=== PATIENT | female | born 1960 | race Caucasian/White ===

== ENCOUNTER → 2018-07-04 06:57 | Outpatient (CLI) | payer OTHER, SELFPAY ==
[2018-07-04 08:31] LABS: Alanine Aminotransferase 41 IU/L (9-52); Albumin Globulin Ratio 1.5 (1.0-2.8); Alkaline Phosphatase 58 U/L (38-126); Aspartate Aminotransferase 30 IU/L (14-36); Bilirubin Total 0.7 mg/dL (0.2-1.3); Blood Urea Nitrogen 16 mg/dL (7-17); Calcium 9.6 mg/dL (8.4-10.2); Carbon Dioxide 28 mmol/L (22-32); Chloride 105 mmol/L (98-107); Cholesterol 175 mg/dL (140-199); Estimated Glomerular Filt Rate 56.9 mL/min (>60); Globulin 2.7 g/dL (1.7-4.1); Glucose 83 mg/dL (70-100); HDL Cholesterol 48 mg/dL (40-60); HEMOLYSIS 15 (0-50); LDL Cholesterol Calculated 100 mg/dL (<100); Potassium 4.3 mmol/L (3.4-5.1); Sodium 143 mmol/L (137-145); Total Protein 6.7 g/dL (6.3-8.2); Triglycerides 136 mg/dL (35-150)
== END ==
PROVIDERS: PCP Physician Assistant; Visit Provider Physician Assistant
DX: E78.2 Mixed hyperlipidemia (principal)
CPT/HCPCS: 36415; 80053; 80061

== ENCOUNTER → 2018-07-23 10:57 | Outpatient (CLI) | payer OTHER, SELFPAY ==
--- NOTE | 2018-07-23 11:05 | DI.MG.S_ITS ---
BILATERAL DIGITAL SCREENING MAMMOGRAM 3D/2D WITH CAD: 07/23/2018 CLINICAL: Routine screening. Comparison is made to exams dated: 08/02/2015 mammogram, 07/13/2015 mammogram, and 06/24/2013 mammogram - [facility]. There are scattered fibroglandular elements in both breasts. Current study was also evaluated with a Computer Aided Detection (CAD) system. There is 0.5 cm oval equal density focal asymmetry with a circumscribed margin in the right breast at 2 o'clock middle depth. No other significant masses, calcifications, or other findings are seen in either breast. IMPRESSION: INCOMPLETE: NEEDS ADDITIONAL IMAGING EVALUATION The 0.5 cm oval equal density focal asymmetry in the right breast is indeterminate. Mediolateral and spot compression views as well as additional views with possible ultrasound are recommended. This exam was interpreted at Station ID: [id number]. NOTE: For mammograms, a report in lay terms will be sent to the patient. Approximately 15% of breast malignancies will not be visualized mammographically. In the management of a palpable breast mass, a negative mammogram must not discourage biopsy of a clinically suspicious lesion. Electronically Signed By: John aguilera/joao:07/23/2018 11:36:12 letter sent: Additional Imaging Needed ACR BI-RADS Category 0: Incomplete 3340F
== END ==
PROVIDERS: PCP Physician Assistant; Visit Provider Physician Assistant
DX: Z12.31 Encounter for screening mammogram for malignant neoplasm of breast (principal)
CPT/HCPCS: 77063; 77067

== ENCOUNTER → 2018-08-29 08:53 | Outpatient (CLI) | payer OTHER, SELFPAY ==
--- NOTE | 2018-08-29 08:54 | DI.US.S_ITS ---
PROCEDURE: US BREAST RT LIMITED COMPARISON: None. INDICATIONS: ABNORMAL RIGHT MAMMOGRAM FINDINGS: IMPRESSION: Dictated by: Mercy Altamirano M.D. on 08/29/2018 at 10:59 Approved by: Mercy Altamirano M.D. on 08/29/2018 at 11:02
--- NOTE | 2018-08-29 08:54 | DI.MG.S_ITS ---
UNILATERAL RIGHT DIGITAL DIAGNOSTIC MAMMOGRAM 3D/2D WITH ADDITIONAL VIEWS: 08/29/2018 CLINICAL: Additional evaluation requested from prior study. Comparison is made to exams dated: 07/23/2018 mammogram, 08/02/2015 mammogram, 07/13/2015 mammogram, and 06/24/2013 mammogram - [facility]. There are scattered fibroglandular elements in right breast. There is 0.5 cm oval equal density focal asymmetry with a circumscribed margin in the right breast at 2 o'clock middle depth. This is seen in additional views. No other significant masses or calcifications are seen in the breast. IMPRESSION: INCOMPLETE: NEEDS ADDITIONAL IMAGING EVALUATION The 0.5 cm oval equal density focal asymmetry in the right breast is indeterminate. A targeted ultrasound of the right breast is recommended and will be performed immediately following this exam. This exam was interpreted at Station ID: [id number]. NOTE: For mammograms, a report in lay terms will be sent to the patient. Approximately 15% of breast malignancies will not be visualized mammographically. In the management of a palpable breast mass, a negative mammogram must not discourage biopsy of a clinically suspicious lesion. Electronically Signed By: Mercy Altamirano M.D. lk/:08/29/2018 09:47:14 letter sent: Additional Imaging Needed ACR BI-RADS Category 0: Incomplete 3340F
--- NOTE | 2018-08-29 09:49 | DI.US.S_ITS ---
Patient Name: RITA GANNON date: 1960 Sex: F Attending Physician: David Indications: Date: 08/29/2018 09:49 At the request of: KIRILL PAREDES Procedure: US breast RT limited ULTRASOUND OF RIGHT BREAST: 08/29/2018 CLINICAL: Patient returns today to evaluate a density in the right breast. Comparison is made to exams dated: 08/29/2018 mammogram, 07/23/2018 mammogram, 07/13/2015 mammogram, and 06/24/2013 mammogram - [facility]. Continuous wave Doppler ultrasound of the right breast was performed on the area of interest. There is a 0.8 cm x 0.5 cm x 0.3 cm cluster of irregular microcysts in the right breast at 2 o'clock anterior depth. This correlates with mammography findings. IMPRESSION: PROBABLY BENIGN The 0.8 cm x 0.5 cm x 0.3 cm cluster of microcysts in the right breast is probably benign. A follow-up ultrasound in 6 months is recommended to demonstrate stability. This exam was interpreted at Station ID: [id number]. SUMMARY: This was discussed with the patient by the radiologist at the time of the exam. Electronically Signed By: Mercy hanley/:08/29/2018 11:02:08 letter sent: Followup Recommended Ultrasound BI-RADS: 3 Probably benign
== END ==
PROVIDERS: PCP Physician Assistant; Visit Provider Physician Assistant
DX: R92.8 Other abnormal and inconclusive findings on diagnostic imaging of breast (principal); N64.89 Other specified disorders of breast
CPT/HCPCS: 76642; 77065; G0279

== ENCOUNTER → 2019-05-28 10:06 | Outpatient (CLI) | payer OTHER, SELFPAY ==
--- NOTE | 2019-05-28 | DI.US.S_ITS ---
LIMITED ULTRASOUND OF LEFT BREAST: 05/28/2019 CLINICAL: Additional evaluation requested from prior study. Comparison is made to exams dated: 05/28/2019 mammogram, 08/29/2018 ultrasound, 08/29/2018 mammogram, 07/23/2018 mammogram, 08/02/2015 mammogram, and 07/13/2015 mammogram - [facility]. Color flow and real-time ultrasound of the left breast 11-12 o'clock region were performed. Wilson scale images of the real-time examination were reviewed. There is a 0.8 x 0.6 x 0.6 cm oval indistinct hypoechoic cyst with increased through transmission/posterior acoustic enhancement, and no vascularity on Doppler ultrasound located in the left breast at 11 o'clock 5 cm from the nipple. This appears to correlate with the finding seen on mammography. IMPRESSION: PROBABLY BENIGN 0.8 cm probable complicated cyst in the left breast at 11 o'clock 5 cm from the nipple is probably benign. A follow-up mammogram and an ultrasound in 6 months is recommended to demonstrate stability. The patient is advised to monitor her breasts and to return sooner for re-evaluation should she feel anything grow or change. This exam was interpreted at Station ID: [id number]. Electronically Signed By: Ranjith Barclay M.D. ecl/:05/28/2019 12:14:05 letter sent: Followup Recommended Ultrasound BI-RADS: 3 Probably benign
--- NOTE | 2019-05-28 10:09 | DI.US.S_ITS ---
LIMITED ULTRASOUND OF RIGHT BREAST: 05/28/2019 CLINICAL: 6 month follow-up of cysts. Comparison is made to exams dated: 05/28/2019 mammogram, 08/29/2018 ultrasound, 08/29/2018 mammogram, 07/23/2018 mammogram, 07/13/2015 mammogram, and 06/24/2013 mammogram - [facility]. Color flow and real-time ultrasound of the right breast 1-2 o'clock region were performed. Wilson scale images of the real-time examination were reviewed. There is a 0.7 x 0.6 x 0.8 cm oval indistinct hypoechoic mass versus complicated cyst in the right breast at 1:00 position 7 cm from the nipple. This demonstrates mild posterior acoustic enhancement, no vascularity on Doppler ultrasound, and a idkosp-yrgm-yhtw/anti-parallel orientation. This appears to correlate with the new focal asymmetry seen on comparison diagnostic mammography performed earlier today 05/28/19. There is a 0.8 x 0.5 x 0.4 cm oval cluster of probable microcysts in the right breast at 2:00 position 3 cm from the nipple which demonstrates mild posterior acoustic enhancement and no vascularity on Doppler ultrasound. This appears to correlate with the findings seen on comparison diagnostic mammography of 08/29/18 and earlier today 05/28/19. This previously measured approximately 0.6 x 0.5 x 0.3 cm on comparison exam of 08/29/18. Target ultrasound of the right axilla demonstrates no convincing right axillary lymphadenopathy. IMPRESSION: SUSPICIOUS OF MALIGNANCY 1. 0.8 cm oval hypoechoic mass versus complicated cyst in the right breast at 1:00 position 7 cm from the nipple, which appears to correlate with the new focal asymmetry seen on comparison diagnostic mammography. An ultrasound-guided biopsy with clip placement is recommended (to determine concordance with the focal asymmetry seen on comparison mammography). 2. Stable 0.8 cm probable cluster of microcysts in the right breast at 2:00 position 3 cm from the nipple. A followup mammogram and targeted ultrasound in 6 months is recommended to demonstrate stability. 3. No ultrasound evidence of right axillary lymphadenopathy. These results and recommendations were discussed with the patient at the time of the exam by the [facility] Radiologist Dr. Jevon Larios in person. This exam was interpreted at Station ID: [id number]. Electronically Signed By: Ranjith Barclay M.D. ecl/:05/28/2019 12:55:00 letter sent: Biopsy Required Ultrasound BI-RADS: 4b Suspicious abnormality - intermediate suspicion of malignancy
--- NOTE | 2019-05-28 10:09 | DI.MG.S_ITS ---
BILATERAL DIGITAL DIAGNOSTIC MAMMOGRAM 3D/2D SHORT-TERM FOLLOW-UP: 05/28/2019 CLINICAL: Patient returns for 6 month follow up of right breast, due for bilateral exam. Comparison is made to exams dated: 08/29/2018 mammogram, 07/23/2018 mammogram, and 07/13/2015 mammogram - [facility]. There are scattered fibroglandular elements in both breasts. Previously identified 0.5 cm oval equal density focal asymmetry with a circumscribed margin in the right breast at 2 o'clock middle depth seen on comparison mammograms of 08/29/18 and 07/23/18 remains stable. There is a new approximately 1.0 cm oval equal density focal asymmetry with an indistinct margin in the right breast near 1 o'clock posterior depth. There is a new approximately 0.5 cm oval low density focal asymmetry with an indistinct margin in the left breast near near 11 o'clock posterior depth. IMPRESSION: INCOMPLETE: NEEDS ADDITIONAL IMAGING EVALUATION 1) Previously identified 0.5 cm oval equal density focal asymmetry with a circumscribed margin in the right breast at 2 o'clock middle depth seen on comparison mammograms of 08/29/18 and 07/23/18 remains stable. A targeted ultrasound is recommended for further evaluation. 2) New approximately 1.0 cm oval equal density focal asymmetry with an indistinct margin in the right breast near 1 o'clock posterior depth. A targeted ultrasound is recommended for further evaluation. 3) New approximately 0.5 cm oval low density focal asymmetry with an indistinct margin in the left breast near near 11 o'clock posterior depth. A targeted ultrasound is recommended for further evaluation. This exam was interpreted at Station ID: [id number]. NOTE: For mammograms, a report in lay terms will be sent to the patient. Approximately 15% of breast malignancies will not be visualized mammographically. In the management of a palpable breast mass, a negative mammogram must not discourage biopsy of a clinically suspicious lesion. Electronically Signed By: Ranjith Barclay M.D. ecl/:05/28/2019 11:57:52 ACR BI-RADS Category 0: Incomplete 3340F
== END ==
PROVIDERS: PCP Physician Assistant; Visit Provider Physician Assistant
DX: N60.01 Solitary cyst of right breast (principal)
CPT/HCPCS: 76642; 77066; G0279

== ENCOUNTER → 2019-06-16 09:09 | Outpatient (CLI) | payer OTHER, SELFPAY ==
--- NOTE | 2019-06-16 | PATH_ITS ---
[facility] Accession Number: [id number] . 01 Material submitted: . breast - RIGHT BREAST 1 O'CLOCK 7 CM FN CORE BIOPSY, 10 G, 4 PASSES . 01 Diagnosis: Right Breast, 1 o'clock, 7 cm FN, Image-Guided Core Biopsy: Benign breast parenchyma with the following findings: Benign cyst in a background of fibrocystic changes and duct ectasia with associated rupture. Foci of benign adenosis present, see microscopic description. Rare calcifications associated with benign ducts also present. Negative for in situ and invasive carcinoma. MRV 06/18/2019 1548 Local . 01 Comment: As part of ongoing assistant manager quality management, this case is also reviewed by Dr. Mary Matias, who agrees with the interpretation. . 01 Electronically signed: . Stephanie Holley MD, Pathologist NPI- [id number] . 01 Gross description: . Received one formalin-filled container labeled with the patient's name and designated right breast 1 o'clock 7 cm FN core biopsy 10 g four passes. The specimen is received with a plastic filter in container, sample loose in container and consists of four yellow-matamoros portions of tissue which range in size from 0.4 x 0.4 x 0.3 cm to 1.0 x 0.5 x 0.4 cm. The specimen is entirely submitted in one cassette. Collection date: 06/16/2019. Possible collection time per requisition: 10:44. Total fixation time: 12 hours, up to 24. ([id number]) /FRANCISCO 06/17/2019 0303 Local . 01 Microscopic: . Microscopic examination reveals a cyst lined by cuboidal to low-columnar epithelium with apocrine metaplasia. The adjacent breast tissue shows fibrocystic changes with columnar cell changes and areas of adenosis with focally compressed and sclerosed ducts also present. To confirm the presence of myoepithelial cell layer, myosin and p63 immunostains are performed, labeling the myoepithelial cells. These results along with the morphology support the diagnosis. There is no histologic evidence of atypia or malignancy. . Correlation with radiologic findings is also recommended. . * This test was developed and its performance characteristics determined by [employer]. It has not been cleared or approved by the U.S. Food and Drug Administration. The FDA has determined that such clearance or approval is not necessary. This test is used for clinical purposes. It should not be regarded as investigational or for research. . 01 Pathologist provided ICD-10: N63.10 . 01 CPT . 426831, G72419, B79977 Performed at: 01 [facility] [address] [place] [address], [place], [place] [id number] MD John Clark MD Phone: [phone]
--- NOTE | 2019-06-16 | DI.MG.S_ITS ---
UNILATERAL RIGHT DIGITAL DIAGNOSTIC MAMMOGRAM POST-NEEDLE BIOPSY: 06/16/2019 CLINICAL: Right breast mass. Post clip placement. Comparison is made to exams dated: 05/28/2019 mammogram, 08/29/2018 mammogram, 07/23/2018 mammogram, and 07/13/2015 mammogram - [facility]. There are scattered fibroglandular elements in right breast. There is a marker clip in the appropriate position in the right breast at 1 o'clock posterior depth. This marker clip placement is at the biopsy site. IMPRESSION: POST PROCEDURE MAMMOGRAM FOR MARKER PLACEMENT There was a successful marker clip placement in the right breast posterior depth. This exam was interpreted at Station ID: [id number]. NOTE: For mammograms, a report in lay terms will be sent to the patient. Approximately 15% of breast malignancies will not be visualized mammographically. In the management of a palpable breast mass, a negative mammogram must not discourage biopsy of a clinically suspicious lesion. Electronically Signed By: Glenn cueva/:06/16/2019 15:20:15 ACR BI-RADS Category Post-procedure mammogram for marker placement
--- NOTE | 2019-06-16 09:11 | DI.US.S_ITS ---
ULTRASOUND GUIDED BIOPSY RIGHT BREAST USING VACUUM DEVICE WITH MARKING DEVICE INSERTED: 06/16/2019 CLINICAL: Right breast mass. PATIENT CONSENT: Risks (minor bleeding, infection, vasovagal reaction and repeat procedure), benefits and alternatives were explained to the patient and written informed consent was obtained. Correlation is made to exams dated: 05/28/2019 ultrasound, 06/16/2019 mammogram, 05/28/2019 ultrasound, 05/28/2019 mammogram, 08/29/2018 ultrasound, and 08/29/2018 mammogram - [facility]. An ultrasound guided biopsy using real-time ultrasound was performed for the indistinct irregular shaped cystic mass located in the right breast at 1 o'clock posterior depth. The skin was prepped in the usual manner. Local anesthetic was administered to the access site. A small incision was made in the breast. The abnormality was approached from the lateral aspect. A biopsy needle was placed adjacent to the abnormality under ultrasound guidance. Once the needle was documented to be in the correct location, four specimens were obtained using the Mammotome biopsy system. A clip was inserted into the biopsy cavity. The specimens were sent to the laboratory for pathological analysis. IMPRESSION: ULTRASOUND GUIDED BIOPSY BENIGN Ultrasound guided biopsy of the cystic mass in the right breast at 1 o'clock posterior depth was successful. Pathology indicates benign adenosis (AD), cyst (BC), ductal ectasia (DE), and fibrocystic changes (FC). Pathology results are concordant with imaging findings. In addition, right breast ultrasound found a cluster of microsycts in the right breast 2:00 about 3 cm from the nipple which is probably benign. A follow-up right mammogram and targeted ultrasound to evaluate this area in 6 months is recommended to demonstrate stability. Results were communicated to the ordering provider. This exam was interpreted at Station ID: [id number]. Glenn cueva,krkale/:06/23/2019 09:33:39
== END ==
PROVIDERS: PCP Physician Assistant; Visit Provider Physician Assistant
DX: N60.01 Solitary cyst of right breast (principal); N60.41 Mammary duct ectasia of right breast; N60.21 Fibroadenosis of right breast; N60.11 Diffuse cystic mastopathy of right breast
CPT/HCPCS: 19083; 77065

== ENCOUNTER 2019-07-10 08:37 | Day surgery (SDC) | payer OTHER, SELFPAY ==
--- NOTE | 2019-07-10 | PATH_ITS ---
[facility] Accession Number: [id number] . 01 Material submitted: . PART A: colon - POLYP AT 90 CM X2 PART B: colon - POLYP AT 100 CM PART C: colon - POLYP AT 60 CM X4 PART D: colon - POLYP AT 30 CM X3 . 02 Diagnosis: A. Cecum At 90 CM, Polyps: Tubular adenoma x2. . B. Colon At 100 CM, Polyp: Colonic mucosa with no diagnostic abnormality, consistent with polypoid redundancy. Negative for dysplasia or malignancy. . C. Colon At 60 CM, Polyps: Hyperplastic polyp x3. . D. Colon At 30 CM, Polyps: Hyperplastic polyp x2. Colonic mucosa with prominent benign lymphoid aggregate x1. BFI 07/13/2019 1006 Local . 02 Comment: C. Only three tissue fragments are received for histologic evaluation. . 02 Electronically signed: . Richard Fitzgerald MD, PhD, Pathologist NPI- [id number] . 01 Gross description: . Part A: POLYP AT 90 CM X2: Received in formalin are 2 fragment(s) of hylton, soft tissue measuring 0.1 x 0.1 x 0.1 cm to 0.3 x 0.2 x 0.2 cm which is bisected and submitted entirely in 1 cassette(s) Part B: POLYP AT 100 CM: Received in formalin are 3 fragment(s) of hylton, soft tissue measuring 0.1 x 0.1 x 0.1 cm to 0.2 x 0.2 x 0.2 cm which is entirely submitted and submitted entirely in 1 cassette(s) Part C: POLYP AT 60 CM X4: Received in formalin are 3 fragment(s) of hylton, soft tissue measuring 0.2 x 0.2 x 0.2 cm to 0.3 x 0.2 x 0.2 cm which is entirely submitted and submitted entirely in 1 cassette(s) Part D: POLYP AT 30 CM X3: Received in formalin are 3 fragment(s) of hylton, soft tissue measuring 0.2 x 0.2 x 0.2 cm to 0.3 x 0.2 x 0.2 cm which is entirely submitted and submitted entirely in 1 cassette(s) /[facility] [place]2019 [facility] Local . 02 Pathologist provided ICD-10: D12.6, K63.5 . 02 CPT . 615376, 547560, 095009, 002986 Performed at: 01 [facility] [address] [place] [address], [place], [place] [id number] MD John Clark MD Phone: [phone] Performed at: 02 [facility] [address] [place], [place] [id number] MD Ирина Childs MD Phone: [phone]
[2019-07-10 09:02] VITALS: BP 123/88; PULSE 89; RESP 15; TEMP 36.1; O2SAT 98; BMI 29.5
[2019-07-10] MEDS: SODIUM CHLORIDE 0.9% 1,000 ML 200 ML IV (09:10)
--- NOTE | 2019-07-10 09:46 | PM.PREOP ---
Pre-operative Note Interval Note History & Physical reviewed/Exam performed by Physician: Yes Changes to H&P: No H&P completed within 30 days and has changed as indicated here:: No changes. Patient has completed bowel prep. No new findings. ASA Class (for procedural sedation): II
--- NOTE | 2019-07-10 10:45 | PM.OP.ENDO ---
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 A time-out was performed and then the patient has been under sedation starting with 4 mg of Versed and 100 mg of fentanyl. Vitals were monitored throughout the procedure and remained stable. Once adequately sedated the procedure was begun a rectal exam was performed revealing no abnormalities. The colonoscope was then introduced to the rectum and advanced to the cecum in the usual fashion. The cecum was identified with the mucosal try fold and the ileocecal valve. The scope was then retracted in the usual fashion rotating side to side and examining each mucosal fold. Polyps were identified at 90 cm, 100 cm, 60 cm, and 30 cm. All removed by cold forceps biopsy. Two polyps were removed at 90 cm, 1 at 100 cm, 4 at 60 cm, and 3 at 30 cm. These were all 2-3 mm sessile polyps. There was good hemostasis achieved after polypectomies were completed. At the conclusion procedure retroflexion was performed and a small grade 1-2 internal hemorrhoids without stigmata of bleeding were seen. Following that the scope was withdrawn from the rectum the procedure was concluded the patient tolerated the procedure well was transferred to the PACU in stable condition. Scope withdrawal time: 21 Sedation minutes: 46 (6 mg of Versed, 200 micron g of fentanyl) Findings: polyp Specimen(s): other (Ten small sessile polyps; 2 at 90 cm. One at 100 cm. Four at 60 cm. Three at 30 cm. ) Complications: none Impression: Multiple small flat polyps throughout the descending and recto sigmoid colon Post-procedure Recommendations: Colonscopy in 3 years (If polyps are nonneoplastic. Repeat colonoscopy will need to be done sooner if any polyps are adenoma.) Follow up: as needed (Depending on pathology results. Patient will plan to polyp follow-up for her anal condyloma within 1-2 weeks.) Disposition: PACU
[2019-07-10] MEDS: fentaNYL 250 MCG/5 ML INJ IV (10:47)
[2019-07-10] MEDS: MIDAZOLAM 5 MG/5 ML VIAL IV (10:47)
[2019-07-10 10:48] VITALS: BP 111/72; PULSE 65; RESP 13; TEMP 36.7; O2SAT 96
[2019-07-10 10:53] VITALS: BP 113/74; PULSE 64; RESP 14; TEMP 36.7; O2SAT 96
[2019-07-10 10:58] VITALS: BP 111/74; PULSE 67; RESP 14; O2SAT 97
[2019-07-10 11:06] VITALS: BP 102/65; PULSE 67; RESP 14; TEMP 36.8; O2SAT 97
[2019-07-10 11:20] VITALS: BP 122/80; PULSE 70; RESP 16; TEMP 36.1; O2SAT 97
== END 2019-07-10 11:30 | disposition home or self-care (01) ==
PROVIDERS: PCP Physician Assistant; Visit Provider Surgery
PROC: 0DJD8ZZ Inspection of Lower Intestinal Tract, Via Natural or Artificial Opening Endoscopic (ICD-10-PCS; CPT 45378; principal; 2019-07-10 09:45)
DX: Z86.010 Personal history of colon polyps (principal); K64.0 First degree hemorrhoids; D12.0 Benign neoplasm of cecum; D12.6 Benign neoplasm of colon, unspecified
CPT/HCPCS: 45380; 99152; 99153; J2250; J3010

== ENCOUNTER → 2019-08-15 10:15 | Outpatient (CLI) | payer OTHER, SELFPAY ==
[2019-08-15 11:27] LABS: Add Manual Diff / Slide Review NO; Basophils Absolute Auto 100 /uL (0-100); Eosinophils Absolute Auto 400 /uL (0-450); Eosinophils Percent Auto 5.3 % (2-4); Hemoglobin 15.6 g/dL (12.0-16.0); Lymphocytes Absolute Auto 2200 /uL (1100-4500); Lymphocytes Percent Auto 27.3 % (25-40); Mean Corpuscular HGB Conc 34.6 % (30-36); Mean Corpuscular Hemoglobin 31.2 PG (26-34); Mean Corpuscular Volume 90.3 fL (80-100); Monocytes Absolute Auto 400 /uL (0-900); Monocytes Percent Auto 4.8 % (3-14); Neutrophils Absolute Auto 5000 /uL (1500-7000); Neutrophils Percent Auto 61.6 % (50-75); Platelet Count 269 X10^3/uL (150-400); Red Blood Cell Count 4.98 X10^6/uL (4.0-5.2); Red Cell Distribution Width 13.3 % (11.6-14.8); White Blood Cell Count 8.1 X10^3/uL (4.5-11.0)
[2019-08-15 11:51] LABS: Alanine Aminotransferase 43 IU/L (<35); Albumin 4.2 g/dL (3.5-5.0); Albumin Globulin Ratio 1.4 (1.0-2.8); Alkaline Phosphatase 69 U/L (38-126); Aspartate Aminotransferase 29 IU/L (14-36); Bilirubin Total 0.5 mg/dL (0.2-1.3); Blood Urea Nitrogen 16 mg/dL (7-17); Calcium 9.4 mg/dL (8.4-10.2); Carbon Dioxide 25 mmol/L (22-32); Chloride 105 mmol/L (98-107); Cholesterol 184 mg/dL (140-199); Estimated Glomerular Filt Rate 56.6 mL/min (>60); Glucose 94 mg/dL (80-110); HDL Cholesterol 38 mg/dL (40-60); HEMOLYSIS < 15 (0-50); LDL Cholesterol Calculated 117 mg/dL (<100); Potassium 4.4 mmol/L (3.4-5.1); Sodium 138 mmol/L (137-145); Total Protein 7.2 g/dL (6.3-8.2); Triglycerides 146 mg/dL (35-150)
[2019-08-15 12:19] LABS: Thyroid Stimulating Hormone 3.37 uIU/mL (0.47-4.68)
== END ==
PROVIDERS: PCP Physician Assistant; Visit Provider Physician Assistant
DX: E78.2 Mixed hyperlipidemia (principal); J45.40 Moderate persistent asthma, uncomplicated; K21.9 Gastro-esophageal reflux disease without esophagitis; R53.83 Other fatigue
CPT/HCPCS: 36415; 80053; 80061; 84443; 85025

== ENCOUNTER 2019-09-09 07:49 | Day surgery (SDC) | payer OTHER, SELFPAY ==
[2019-09-08 11:31] VITALS: BMI 29.9
[2019-09-09] VITALS (8 sets, daily range): BP systolic 97–120; BP diastolic 66–79; PULSE 64–75; RESP 9–19; TEMP 36.1–36.5; O2SAT 91–96; BMI 29.9
--- NOTE | 2019-09-09 | PATH_ITS ---
[facility] Accession Number: [id number] . 01 Material submitted: . anal skin - ANAL WART . 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 Negative for high-grade dysplasia and malignancy. [facility] 09/10/2019 1738 Local . 01 Electronically signed: . Mary Matias MD, Pathologist NPI- [id number] . 01 Gross description: . ANAL WART: Received in formalin is 1 fragment of hylton soft tissue measuring 0.4 x 0.2 x 0.3 cm. Tissue is inked. Specimen is sectioned and submitted in its entirety in 1 cassette. /[facility] [place] 09/09/2019 1918 Local . 01 Pathologist provided ICD-10: A63.0 . 01 CPT . 572376 Performed at: 01 [facility] [address] [place] [address] [address], [place], [place] [id number] MD John Clark MD Phone: [phone]
[2019-09-09] MEDS: LACTATED RINGERS 1,000 ML 100 ML IV (08:27)
--- NOTE | 2019-09-09 08:44 | P.HP_ITS ---
History of Present Illness History of Present Illness Date Patient Seen: 09/09/19 Time Patient Seen: 08:44 Chief complaint: [id number] Narrative: This is a 59-year-old woman with history of anal condyloma, and screening colonoscopy 10 years ago during which tubular adenoma polyps were removed. She just had her repeat colonoscopy last month, and now she is here for removal of condyloma. The patient denies any significant discomfort or pain in the perianal area. She noticed a bump which is in the anoderm which has occasionally bothers her or blood, but she feels it is getting smaller. She denies any constipation, diarrhea, melena, hematochezia, abdominal pain, unexplained weight loss. ROS: 13 system review is negative other than as mentioned in the HPI. PE: GENERAL: Well groomed, alert, and cooperative. Answers questions promptly and appropriately. Vital signs noted. HENT: Normocephalic, atraumatic. Hearing intact. Oral mucosa is pink and moist. EYES: Conjunctiva pink, sclera white, no periorbital swelling. CARDIOVASCULAR: Regular rate. No pedal edema. RESPIRATORY: Normal respirations, breathing comfortably on room air. GASTROINTESTINAL: abdomen soft, nontender, nondistended, well healed surgical incisions from lap eduard. PERIANAL: 2mm anal condyloma on right posterior anoderm; multiple tiny condyloma of the left and right anoderm RECTAL: Normal tone, no masses, no gross blood; no tenderness GENITALURINARY: No flank tenderness. MUSCULOSKELETAL: Normal gait and coordination. Equal tone and mass bilaterally. EXTREMITIES: CMS intact, no pedal edema. SKIN: Warm, dry, soft, appropriate color for ethnicity. No other lesions, rashes, or wounds. NEURO: Alert and Oriented X 3. Good coordination. No ataxia, or sensory deficits, or cognitive issues. PSYCH: Appropriate affect and mood. Patient History Medical History Allergic rhinitis, seasonal (Chronic) Anal condyloma (Chronic) Asthma, moderate persistent, well-controlled (Chronic) Chickenpox (Resolved) Depression (Chronic 02/19/11) Gastroesophageal reflux disease (Chronic 12/26/05) Mixed hyperlipidemia (Resolved) Mumps (Resolved) Sinus drainage (Acute) Tubular adenoma of colon (Resolved) Surgical History Hx of cholecystectomy (Resolved 05/2005) Hx of colonoscopy with polypectomy (Resolved 04/2010) Family & Social History Family History Mother Cancer Father Cancer Social History: household members spouse Tobacco & Substance use: Tobacco type cigarettes Smoking Status Former smoker alcohol intake current Substance Use Type marijuana Meds Home Medications and Allergies Home Medications Medication Instructions Recorded Confirmed Type [MIGRAINE MEDICATION] 1 - 2 tab PO PRN PRN #0 06/27/17 08/18/19 History Allergy medication See Rx Instructions .ROUTE .COMPLEX 07/09/18 08/18/19 History fluticasone Nasal [place] See Rx Instructions .ROUTE .COMPLEX 07/09/18 09/09/19 History estradiol 0.5 mg tablet 0.5 mg PO QDAY #90 tab 07/22/19 09/09/19 Rx pantoprazole 40 mg tablet,delayed 40 mg PO DAILY #90 tab 08/05/19 09/09/19 Rx release medroxyprogesterone 5 mg tablet 5 mg PO DAILY #90 tab 08/14/19 09/09/19 Rx bupropion HCl 150 mg tablet,12 hr 150 mg PO Q DAY #90 tab 08/18/19 09/09/19 Rx sustained-release fluticasone propionate-salmeterol 1 puff INHALATION BID #12 gram 08/18/19 09/09/19 Rx 45 mcg-21 mcg/actuation HFA inhaler albuterol sulfate 90 mcg/actuation 2 puff INHALATION Q4-6H #1 inh 09/01/19 09/09/19 Rx aerosol inhaler epinephrine 0.3 mg IJ ONCE PRN 09/08/19 09/08/19 History Allergies Allergy/AdvReac Type Severity Reaction Status Date / Time diphenhydramine Allergy Severe (BENADRYL) Verified 08/18/19 09:30 PUTS HER TO SLEEP IMMEDIATELY venom-honey bee Allergy Intermediate SWELLING Verified 08/18/19 09:30 [bee venom (honey bee)] ANIMAL DANDER Allergy Severe WHEEZING, Uncoded 08/18/19 09:30 NASAL AND CHEST CONGESTION Exam Vital Signs (past 8 hours): - 09/09/19 08:01 Temperature 97.0 F L Pulse Rate 65 Respiratory Rate 15 Pulse Oximetry 94 Oxygen Delivery Method Room Air Assessment & Plan Assessment and plan (1) History of adenomatous polyp of colon: Current visit: No Status: Chronic (2) Gastroesophageal reflux disease: Current visit: No Status: Chronic (3) Anal condyloma: Current visit: No Status: Chronic Assessment & Plan narrative: Risks and benefits of anorectal exam under anesthesia, and removal of condyloma were discussed with the patient. Risk of bleeding, infection, then it damage to nearby structures were discussed. The patient desires to proceed with removal of her condyloma. Plan: proceed with surgical excision of condyloma Quality VTE Deep Vein Thrombosis/Pulmonary Embolism Present on Admission: No
[2019-09-09] MEDS: levoFLOXacin 500 MG/100 ML PIGGYBACK 100 MG IV (08:45)
[2019-09-09] MEDS: metroNIDAZOLE 500 MG/100 ML PIGGYBACK 100 MG IV (08:55)
--- NOTE | 2019-09-09 09:02 | SUR.OPER ---
Lithotomy on padded OR bed, head on pillow, arms secured on padded arm boards at <90 degrees abduction. Legs secured in padded yellow fins stirrups.
[2019-09-09] MEDS: BUPIVACAINE 0.25% W/ EPI (PF) 10 ML VIAL 20 ML INJ (09:08)
--- NOTE | 2019-09-09 09:17 | PM.OP.1 ---
Operative Date/Time/Diagnoses Date of procedure: 09/09/19 Time of procedure: 09:18 Pre-op diagnosis: diffuse anal condyloma Post-op diagnosis: other (Two discrete condyloma, with perianal folliculitis and sebaceous impaction) Procedure & Clinicians Procedure: Right buttock condyloma 2mm x 3mm, and condyloma 1mm x 1mm Perianal sebaceous folliculitis Same procedure as scheduled: Yes Indications: Perianal lesion Surgeon: Amy Wesley Click Yes if Unassisted: No Anesthesia Type: General (LMA) Operative Notes Findings: Anal condyloma x 2 Perianal folliculitis with sebaceous impaction Specimen(s): other (anal condyloma) Estimated Blood Loss (mL): 0 Blood products transfused: none Procedure in detail: Patient was brought into the operating room and placed supine on the operating table. Sequential compression devices were placed on both legs and turned on. Appropriate perioperative antibiotics were given to the patient. General anesthesia was induced and LMA was placed by the anesthesiologist. The patient was then placed in lithotomy position and the perianal area was prepped and draped in sterile fashion using Betadine paint. Surgical time-out was conducted, and then a 3 mm by 3 mm modified elliptical incision was made around the base of the largest condyloma which was on the right buttock, and the lesion was sharply excised and passed off the table for pathology. Another very small condyloma only a few mm in size was also removed in the same fashion and passed off the table for pathology. Hemostasis was achieved using cautery and pressure. The remaining perianal skin and anoderm were examined. There were diffuse small pustules, but no other condyloma. Sebaceous material was expressed from some of the pustules, confirming that they were not condyloma but actually hair follicles with impacted sebaceous material. At this point the procedure was concluded. Topical lidocaine ointment was placed on the wound, and a Telfa dressing was placed over that and secured with gauze and tape. The patient was awakened from anesthesia and the LMA was removed. Needle sponge and instrument counts were correct x2 at the end of the case. The patient tolerated the procedure well. She was transferred to the postanesthesia care unit in stable condition. Complications: none Post-operative Condition: stable Disposition: PACU
[2019-09-09] MEDS: DIBUCAINE 1% OINT 28 GM 1 APPLIC TOP (09:25)
== END 2019-09-09 10:22 | disposition home or self-care (01) ==
PROVIDERS: PCP Physician Assistant; Visit Provider Surgery
PROC: (CPT 45990; principal; 2019-09-09 08:45)
DX: A63.0 Anogenital (venereal) warts (principal); L73.8 Other specified follicular disorders; J45.909 Unspecified asthma, uncomplicated
CPT/HCPCS: 46922; J1100; J1956; J2250; J2405; J2704; J3010

== ENCOUNTER → 2020-08-10 14:01 | Outpatient (CLI) | payer OTHER, SELFPAY ==
--- NOTE | 2020-08-10 14:02 | DI.US.S_ITS ---
LIMITED ULTRASOUND OF RIGHT BREAST: 08/10/2020 CLINICAL: 6 month follow-up of cysts. Comparison is made to exams dated: 08/10/2020 mammogram, 06/16/2019 mammogram, 05/28/2019 ultrasound, 05/28/2019 mammogram, 08/29/2018 ultrasound, and 08/29/2018 mammogram - [facility]. Color flow and real-time ultrasound of the right breast 2 o'clock region were performed. Wilson scale images of the real-time examination were reviewed. There is a benign 0.7 cm x 0.3 cm x 0.3 cm cluster of oval micro cysts in the right breast at 2 o'clock middle depth 3 cm from the nipple. This cluster of oval micro cysts is anechoic and hypoechoic with a well-defined boundary. These abnormalities are decreased in size and correlates with mammography findings. Color flow imaging demonstrates that there is no vascularity present. (previously measured 0.8 cm x 0.5 cm x 0.4 cm and similar in size in August 2018). IMPRESSION: BENIGN There is no sonographic evidence of malignancy. Right breast complicated cyst/cluster of microcysts measuring 0.7 cm is slightly decreased in size and demonstrates long-term stability and is benign. A 1 year screening mammogram is recommended. Exam findings were conveyed to the patient. This exam was interpreted at Station ID: [id number]. Electronically Signed By: Jevon Larios M.D. slc/:08/10/2020 16:39:52 letter sent: Normal Exam Ultrasound BI-RADS: 2 Benign
--- NOTE | 2020-08-10 14:02 | DI.MG.S_ITS ---
BILATERAL DIGITAL DIAGNOSTIC MAMMOGRAM 3D/2D: 08/10/2020 CLINICAL: Late short term follow up, due bilateral. Comparison is made to exams dated: 06/16/2019 mammogram, 05/28/2019 mammogram, 08/29/2018 mammogram, 07/23/2018 mammogram, 05/28/2019 ultrasound, and 05/28/2019 ultrasound - [facility]. There are scattered fibroglandular elements in both breasts. There is an oval focal asymmetry in the right breast at 2 o'clock anterior depth. This is less prominent. Biopsy clip in the right breast 1:00 posterior depth. Region remains stable. There is an oval focal asymmetry in the left breast at 11 o'clock posterior depth. This is less prominent. No other significant masses or calcifications are seen in either breast. IMPRESSION: INCOMPLETE: NEEDS ADDITIONAL IMAGING EVALUATION 1) Focal asymmetry in the right breast at 2 o'clock anterior depth resembles a cyst and is indeterminate. - A targeted ultrasound is recommended and will immediately follow. 2) Focal asymmetry in the left breast at 11 o'clock posterior depth resembles a cyst and is indeterminate. - A targeted ultrasound is recommended and will immediately follow. 3) Stable right breast biopsy site. This exam was interpreted at Station ID: [id number]. NOTE: For mammograms, a report in lay terms will be sent to the patient. Approximately 15% of breast malignancies will not be visualized mammographically. In the management of a palpable breast mass, a negative mammogram must not discourage biopsy of a clinically suspicious lesion. Electronically Signed By: Jevon Larios M.D. slc/:08/10/2020 15:05:43 ACR BI-RADS Category 0: Incomplete 3340F
--- NOTE | 2020-08-10 14:02 | DI.US.S_ITS ---
LIMITED ULTRASOUND OF LEFT BREAST: 08/10/2020 CLINICAL: 6 month follow-up of cysts. Comparison is made to exams dated: 08/10/2020 mammogram, 05/28/2019 ultrasound, 05/28/2019 mammogram, 07/23/2018 mammogram, 08/02/2015 mammogram, and 07/13/2015 mammogram - [facility]. Color flow and real-time ultrasound of the left breast 11 o'clock, and retroareolar regions were performed. Wilson scale images of the real-time examination were reviewed. There is a benign 0.4 cm x 0.3 cm x 0.2 cm round cyst in the left breast at 11 o'clock posterior depth 5 cm from the nipple. This round cyst is hypoechoic with a well-defined boundary. This abnormality is decreased in size and correlates with mammography findings. Color flow imaging demonstrates that there is no vascularity present. There also is a benign 0.9 cm x 0.8 cm x 0.7 cm oval cyst in the left breast central to the nipple anterior depth. This oval cyst is anechoic with a well-defined boundary and posterior acoustic enhancement. This correlates with mammography findings. Color flow imaging demonstrates that there is no vascularity present. IMPRESSION: BENIGN 1) The 0.4 cm round cyst in the left breast at 11 o'clock posterior depth is substantially decreased in size and is benign. 2) The 0.9 cm oval cyst in the left breast central to the nipple anterior depth appears simple and is benign. A 1 year screening mammogram is recommended. Exam findings were conveyed to the patient. This exam was interpreted at Station ID: [id number]. Electronically Signed By: Jevon Larios M.D. slc/:08/10/2020 16:47:02 letter sent: Normal Exam Ultrasound BI-RADS: 2 Benign
== END ==
PROVIDERS: PCP Registered Nurse Diabetes Educator; Referring Provider Registered Nurse Diabetes Educator; Visit Provider Registered Nurse Diabetes Educator
DX: R92.8 Other abnormal and inconclusive findings on diagnostic imaging of breast (principal); N60.01 Solitary cyst of right breast; N60.02 Solitary cyst of left breast
CPT/HCPCS: 76642; 77066; G0279

== ENCOUNTER → 2020-08-23 07:06 | Outpatient (CLI) | payer OTHER, SELFPAY ==
[2020-08-23 08:35] LABS: Add Manual Diff / Slide Review NO; Basophils Absolute Auto 100 /uL (0-100); Basophils Percent Auto 0.7 % (0-2); Eosinophils Absolute Auto 200 /uL (0-450); Eosinophils Percent Auto 3.1 % (2-4); Hematocrit 44.6 % (36-46); Lymphocytes Absolute Auto 1800 /uL (1100-4500); Lymphocytes Percent Auto 24.6 % (25-40); Mean Corpuscular HGB Conc 33.6 % (30-36); Mean Corpuscular Hemoglobin 30.1 PG (26-34); Mean Corpuscular Volume 89.6 fL (80-100); Monocytes Absolute Auto 400 /uL (0-900); Monocytes Percent Auto 5.4 % (3-14); Neutrophils Absolute Auto 4900 /uL (1500-7000); Neutrophils Percent Auto 66.2 % (50-75); Platelet Count 239 X10^3/uL (150-400); Red Blood Cell Count 4.98 X10^6/uL (4.0-5.2); Red Cell Distribution Width 13.2 % (11.6-14.8); White Blood Cell Count 7.4 X10^3/uL (4.5-11.0)
[2020-08-23 08:48] LABS: Alanine Aminotransferase 60 IU/L (<35); Albumin 4.1 g/dL (3.5-5.0); Albumin Globulin Ratio 1.4 (1.0-2.8); Alkaline Phosphatase 73 U/L (38-126); Aspartate Aminotransferase 36 IU/L (14-36); BUN Creatinine Ratio 10.6 (6-22); Bilirubin Total 0.7 mg/dL (0.2-1.3); Blood Urea Nitrogen 10 mg/dL (7-17); Calcium 9.3 mg/dL (8.4-10.2); Carbon Dioxide 26 mmol/L (22-32); Chloride 107 mmol/L (98-107); Cholesterol 189 mg/dL (140-199); Estimated Glomerular Filt Rate > 60.0 mL/min (>60); Glucose 93 mg/dL (80-110); HDL Cholesterol 42 mg/dL (40-60); HEMOLYSIS < 15 (0-50); LDL Cholesterol Calculated 120 mg/dL (<100); Sodium 139 mmol/L (137-145); Total Protein 7.1 g/dL (6.3-8.2); Triglycerides 134 mg/dL (35-150)
[2020-08-23 09:38] LABS: TSH w/ Reflex to FT4 1.54 uIU/mL (0.47-4.68)
== END ==
PROVIDERS: PCP Registered Nurse Diabetes Educator; Referring Provider Registered Nurse Diabetes Educator; Visit Provider Registered Nurse Diabetes Educator
DX: Z00.00 Encounter for general adult medical examination without abnormal findings (principal); E78.2 Mixed hyperlipidemia; R74.8 Abnormal levels of other serum enzymes
CPT/HCPCS: 36415; 80053; 80061; 84443; 85025

== ENCOUNTER → 2021-01-06 12:49 | Outpatient (CLI) | payer OTHER, SELFPAY ==
[2021-01-06] MEDS: COVID-19 VACC #1, MRNA(MOD) 100 MCG/0.5 ML VIAL IM (12:55)
== END ==
PROVIDERS: PCP Registered Nurse Diabetes Educator; Visit Provider Internal Medicine
DX: Z23 Encounter for immunization (principal)
CPT/HCPCS: 0011A; 91301

== ENCOUNTER → 2021-02-03 15:56 | Outpatient (CLI) | payer OTHER, SELFPAY ==
[2021-02-03] MEDS: COVID-19 VACC #2, MRNA(MOD) 100 MCG/0.5 ML VIAL IM (16:13)
== END ==
PROVIDERS: PCP Registered Nurse Diabetes Educator; Visit Provider Internal Medicine
DX: Z23 Encounter for immunization (principal)
CPT/HCPCS: 0012A; 91301

== ENCOUNTER → 2021-09-22 07:10 | Outpatient (CLI) | payer OTHER, SELFPAY ==
[2021-09-22 08:45] LABS: Hematocrit 44.1 % (36-46); Hemoglobin 15.3 g/dL (12.0-16.0); Mean Corpuscular HGB Conc 34.6 % (30-36); Mean Corpuscular Hemoglobin 30.2 PG (26-34); Mean Corpuscular Volume 87.3 fL (80-100); Platelet Count 226 X10^3/uL (150-400); Red Blood Cell Count 5.05 X10^6/uL (4.0-5.2); Red Cell Distribution Width 12.8 % (11.6-14.8); White Blood Cell Count 7.2 X10^3/uL (4.5-11.0)
[2021-09-22 09:20] LABS: Alanine Aminotransferase 38 IU/L (<35); Albumin 4.1 g/dL (3.5-5.0); Albumin Globulin Ratio 1.5 (1.0-2.8); Alkaline Phosphatase 68 U/L (38-126); Aspartate Aminotransferase 30 IU/L (14-36); BUN Creatinine Ratio 12.8 (6-22); Bilirubin Total 0.8 mg/dL (0.2-1.3); Blood Urea Nitrogen 14 mg/dL (7-17); Calcium 9.7 mg/dL (8.4-10.2); Carbon Dioxide 28 mmol/L (22-32); Chloride 105 mmol/L (98-107); Cholesterol 201 mg/dL (140-199); Estimated Glomerular Filt Rate 50.9 mL/min (>60); Globulin 2.7 g/dL (1.7-4.1); Glucose 94 mg/dL (80-110); HDL Cholesterol 38 mg/dL (40-60); HEMOLYSIS < 15 (0-50); LDL Cholesterol Calculated 134 mg/dL (<100); Potassium 4.1 mmol/L (3.4-5.1); Sodium 138 mmol/L (137-145); Total Protein 6.8 g/dL (6.3-8.2); Triglycerides 143 mg/dL (35-150)
[2021-09-22 09:43] LABS: TSH w/ Reflex to FT4 4.26 uIU/mL (0.47-4.68)
[2021-09-22 10:50] LABS: Appearance Urine UA SL CLOUDY; Bilirubin Urine UA NEGATIVE (NEGATIVE); Color Urine UA YELLOW; Glucose Urine UA NEGATIVE (Negative); Ketones Urine UA NEGATIVE (NEGATIVE); Leukocyte Esterase Urine UA NEGATIVE (NEGATIVE); Nitrite Urine UA NEGATIVE (Negative); Occult Blood Urine UA TRACE-INTACT (Negative); Protein Urine UA NEGATIVE (Negative); Specific Gravity Urine UA <=1.005 (1.000-1.035); Urobilinogen Urine UA 0.2 E.U./dL (0.2)
[2021-09-22 11:21] LABS: pH Urine UA 6.5 (4.5-8.0)
[2021-09-22 11:41] LABS: Creatinine Urine Random 56.1 mg/dL
[2021-09-22 11:41] LABS: Bacteria Urine Few (2-10); Culture Indicated Urine Cult Not Indicated; RBC Urine 0-1/HPF (0-5/HPF); Squamous Epithelial Cell Urine 1-5 /HPF (0-5/HPF); Transitional Epi Cells Urine 0-1/HPF (0-5/HPF); WBC Urine 1-5/HPF (0-5/HPF)
[2021-09-22 11:56] LABS: Microalbumin Urine Random < 0.6 mg/dL (0-1.6)
== END ==
PROVIDERS: PCP Registered Nurse Diabetes Educator; Referring Provider Registered Nurse Diabetes Educator; Visit Provider Registered Nurse Diabetes Educator
DX: R74.8 Abnormal levels of other serum enzymes (principal); E78.2 Mixed hyperlipidemia; R94.4 Abnormal results of kidney function studies; F32.9 Major depressive disorder, single episode, unspecified
CPT/HCPCS: 36415; 80053; 80061; 81001; 82043; 82570; 84443; 85027

== ENCOUNTER → 2022-10-04 08:26 | Outpatient (CLI) | payer OTHER, SELFPAY ==
[2022-10-04 09:30] LABS: HEMOLYSIS < 15 (0-50); Iron 166 ug/dL (37-170)
[2022-10-04 09:35] LABS: Alanine Aminotransferase 34 IU/L (<35); Albumin 4.1 g/dL (3.5-5.0); Albumin Globulin Ratio 1.4 (1.0-2.8); Alkaline Phosphatase 70 U/L (38-126); Aspartate Aminotransferase 32 IU/L (14-36); BUN Creatinine Ratio 13.1 (6-22); Bilirubin Total 0.7 mg/dL (0.2-1.3); Blood Urea Nitrogen 13 mg/dL (7-17); Calcium 8.9 mg/dL (8.4-10.2); Carbon Dioxide 25 mmol/L (22-32); Chloride 103 mmol/L (98-107); Cholesterol 202 mg/dL (140-199); Estimated Glomerular Filt Rate > 60 mL/min (>60); Globulin 2.9 g/dL (1.7-4.1); Glucose 90 mg/dL (80-110); HDL Cholesterol 43 mg/dL (40-60); HEMOLYSIS < 15 (0-50); LDL Cholesterol Calculated 128 mg/dL (<100); Sodium 137 mmol/L (137-145); Triglycerides 153 mg/dL (35-150)
[2022-10-04 09:40] LABS: Percent Iron Saturation 52 % (15-50); Total Iron Binding Capacity 322 ug/dL (265-497); Transferrin 254 mg/dL (206-381)
[2022-10-04 10:05] LABS: Ferritin 40 ng/mL (11-264)
[2022-10-04 17:26] LABS: Hep C Virus Ab w/Reflex Quant NEGATIVE s/c (NEGATIVE); Hepatitis B Surface Antigen NEGATIVE s/c (NEGATIVE)
[2022-10-05 05:14] LABS: Hepatitis B Core AB w/Reflex Negative (Negative)
== END ==
PROVIDERS: PCP Registered Nurse Diabetes Educator; Referring Provider Registered Nurse Diabetes Educator; Visit Provider Registered Nurse Diabetes Educator
DX: E78.2 Mixed hyperlipidemia (principal); R74.8 Abnormal levels of other serum enzymes; N18.31 Chronic kidney disease, stage 3a
CPT/HCPCS: 36415; 80053; 80061; 82728; 83540; 83550; 86704; 86803; 87340

== ENCOUNTER → 2022-12-03 15:00 | Outpatient (CLI) | payer OTHER, SELFPAY ==
--- NOTE | 2022-12-03 15:02 | DI.MG.S_ITS ---
BILATERAL DIGITAL SCREENING MAMMOGRAM 3D/2D WITH CAD: 12/03/2022 CLINICAL: Routine screening. Family history of breast cancer. Comparison is made to exams dated: 05/28/2019 mammogram, 07/23/2018 mammogram, 07/13/2015 mammogram, and 08/10/2020 ultrasound - [facility]. There are scattered areas of fibroglandular density in both breasts (category b / 25%-50% glandular tissue). Current study was also evaluated with a Computer Aided Detection (CAD) system. There is a new 1 cm oval focal asymmetry with an obscured and circumscribed margin in the right breast at 2 o'clock middle depth. Right breast biopsy clip. Other cyst in the right breast is not significantly changed. No other significant masses, calcifications, or other findings are seen in either breast. IMPRESSION: INCOMPLETE: NEEDS ADDITIONAL IMAGING EVALUATION The new 1 cm oval focal asymmetry in the right breast resembles a cyst and is indeterminate. Additional views with possible ultrasound are recommended. Based on the Tyrer Cuzick model (a risk assessment model) the patient's lifetime risk is 8.4% and her 10 year risk is 3.8%. According to the ACR, ACS, and NCCN guidelines, an annual breast MRI exam along with mammogram is recommended if the patient's lifetime risk is 20% or greater. This exam was interpreted at Station ID: [id number]. NOTE: For mammograms, a report in lay terms will be sent to the patient. Approximately 15% of breast malignancies will not be visualized mammographically. In the management of a palpable breast mass, a negative mammogram must not discourage biopsy of a clinically suspicious lesion. Electronically Signed By: Jevon Larios M.D. [facility]/:12/04/2022 09:34:45 letter sent: Additional Imaging Needed ACR BI-RADS Category 0: Incomplete 3340F
== END ==
PROVIDERS: PCP Registered Nurse Diabetes Educator; Referring Provider Registered Nurse Diabetes Educator; Visit Provider Registered Nurse Diabetes Educator
DX: Z12.31 Encounter for screening mammogram for malignant neoplasm of breast (principal); Z80.3 Family history of malignant neoplasm of breast
CPT/HCPCS: 77063; 77067

== ENCOUNTER → 2023-01-01 10:05 | Outpatient (CLI) | payer OTHER, SELFPAY ==
--- NOTE | 2023-01-01 | DI.MG.S_ITS ---
UNILATERAL RIGHT DIGITAL DIAGNOSTIC MAMMOGRAM 3D/2D WITH ADDITIONAL VIEWS: 01/01/2023 CLINICAL: Additional evaluation requested from prior study. Comparison is made to exams dated: 12/03/2022 mammogram, 08/10/2020 mammogram, 06/16/2019 mammogram, and 05/28/2019 mammogram - [facility]. There are scattered areas of fibroglandular density in the right breast (category b / 25%-50% glandular tissue). There is a 1 cm oval focal asymmetry with an obscured and circumscribed margin in the right breast at 2 o'clock middle depth. No other significant masses or calcifications are seen in the breast. IMPRESSION: INCOMPLETE: NEEDS ADDITIONAL IMAGING EVALUATION The 1 cm oval focal asymmetry in the right breast resembles a cyst and is indeterminate. A targeted ultrasound is recommended and will immediately follow. Based on the Tyrer Cuzick model (a risk assessment model) the patient's lifetime risk is 8.4% and her 10 year risk is 3.8%. According to the ACR, ACS, and NCCN guidelines, an annual breast MRI exam along with mammogram is recommended if the patient's lifetime risk is 20% or greater. This exam was interpreted at Station ID: [id number]. NOTE: For mammograms, a report in lay terms will be sent to the patient. Approximately 15% of breast malignancies will not be visualized mammographically. In the management of a palpable breast mass, a negative mammogram must not discourage biopsy of a clinically suspicious lesion. Electronically Signed By: Jevon Larios M.D. slc/:01/01/2023 10:40:02 ACR BI-RADS Category 0: Incomplete 3340F
--- NOTE | 2023-01-01 10:06 | DI.US.S_ITS ---
LIMITED ULTRASOUND OF RIGHT BREAST: 01/01/2023 CLINICAL: Patient returns today to evaluate a focal asymmetry in the right breast. Comparison is made to exams dated: 01/01/2023 mammogram, 12/03/2022 mammogram, 08/10/2020 ultrasound, 08/10/2020 mammogram, and 08/29/2018 mammogram - [facility]. Color flow and real-time ultrasound of the right breast 2 o'clock region were performed. Wilson scale images of the real-time examination were reviewed. There is a benign 0.6 cm x 0.5 cm x 0.5 cm cluster of oval simple cysts in the right breast at 2 o'clock middle depth 7 cm from the nipple. This cluster of oval simple cysts is anechoic. This correlates with mammography findings. Color flow imaging demonstrates that there is no vascularity present. Second adjacent simple cyst measures 0.5 cm x 0.4 cm x 0.3 cm. IMPRESSION: BENIGN There is no sonographic evidence of malignancy. The 0.6 cm and 0.5 cm cluster of oval simple cysts in the right breast is benign. A 1 year screening mammogram is recommended. This exam was interpreted at Station ID: [id number]. Electronically Signed By: Jevon Larios M.D. slc/:01/01/2023 11:05:04 letter sent: Normal Exam Ultrasound BI-RADS: 2 Benign
== END ==
PROVIDERS: PCP Registered Nurse Diabetes Educator; Referring Provider Registered Nurse Diabetes Educator; Visit Provider Registered Nurse Diabetes Educator
DX: N60.12 Diffuse cystic mastopathy of left breast (principal); R92.8 Other abnormal and inconclusive findings on diagnostic imaging of breast
CPT/HCPCS: 76642; 77065; G0279

== ENCOUNTER 2023-01-08 06:39 | Day surgery (SDC) | payer OTHER, SELFPAY ==
[2023-01-01 10:51] VITALS: BMI 31.9
[2023-01-08] VITALS (9 sets, daily range): BP systolic 105–151; BP diastolic 71–85; PULSE 63–79; RESP 12–16; TEMP 36.3–37.1; O2SAT 94–98; BMI 31.9
--- NOTE | 2023-01-08 | PATH_ITS ---
[facility] Accession Number: [id number] No. of containers..01 Tissue . 01 Material submitted: . anal canal - ANAL CONDYLOMA . 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 Margins of excision: Negative for dysplasia. No invasive malignancy identified. [facility] 01/11/2023 1326 Local . 01 Electronically signed: . Shari Stockton MD, Pathologist NPI- [id number] . 01 Gross description: . The specimen is received in formalin labeled with the patient's name, , and anal condyloma, and consists of an unoriented ellipse of skin measuring 6.9 x 1.5 cm and excised to a depth of 0.6 cm. The margin is inked blue. The specimen is serially sectioned and submitted entirely as follows: A1: Tips. A2-A10: Remaining sequential sections. ([id number]) /MRV 01/09/2023 1814 Local . 01 Microscopic: . There is acanthotic squamous mucosa with a gently lobulated protuberance to polypoid appearance with koilocytosis of the upper layer of cells, as well as increased mitotic activity and numerous binucleate cells. Cytologic atypia, including nuclear hyperchromasia and pleomorphism is present among the epithelial cells of the lower half to two-thirds of the epithelium. Mitotic figures are present up to two-thirds of the epithelium. Mild to focal moderate dysplasia is present. No malignancy is seen. . 01 Pathologist provided ICD-10: A63.0 . 01 CPT . 768775 Specimen Comment: A courtesy copy of this report has been sent to [facility] Performed at: 01 [facility] [address], [place], [place] [id number] MD John Clark MD Phone: [phone]
[2023-01-08] MEDS: LACTATED RINGERS 1,000 ML 42 ML IV ×2 (07:23→08:26)
--- NOTE | 2023-01-08 07:41 | PM.PREOP ---
Pre-operative Note Interval Note History & Physical reviewed/Exam performed by Physician: Yes Changes to H&P: No
[2023-01-08] MEDS: CEFAZOLIN 2 GM/100 ML PREMIX 100 ML IV (08:00)
--- NOTE | 2023-01-08 08:21 | SUR.OPER ---
Prone on padded OR bed, head in foam head support, gel chest rolls, gel pad under knees, pillow under lower legs, toes free of pressure, arms secured on padded arm boards at <90 degrees abduction. Safety belt at thigh.
[2023-01-08] MEDS: BUPIVACAINE LIPOSOME 266 MG/20 ML VIAL INJ (08:51)
[2023-01-08] MEDS: ONDANSETRON 4 MG/2 ML INJ IV (09:48)
[2023-01-08] MEDS: OXYCODONE IR 5 MG TABLET PO (09:48)
[2023-01-08] MEDS: ACETAMINOPHEN 325 MG TABLET PO (09:48)
--- NOTE | 2023-01-08 09:50 | PM.OP.1 ---
Operative Date/Time/Diagnoses Date of procedure: 01/08/23 Time of procedure: 09:50 Pre-op diagnosis: Anal condyloma Post-op diagnosis: same Procedure & Clinicians Procedure: Excision of large 3 cmx 5 cm anal condyloma Same procedure as scheduled: Yes Surgeon: Gi Mendez Click Yes if Unassisted: Yes Anesthesia Type: General Operative Notes Specimen(s): other (Anal condyloma) Procedure in detail: Patient was taken to the operating room and placed in a prone position. Bilateral SCDs were in place and preoperative antibiotics were administered. Time-out was performed. General endotracheal anesthesia had been induced prior to placing in the prone position. Bolsters were used to pad all areas, tape to spread the buttocks, and the perirectal area was prepped and draped in the usual fashion. Next I injected 20 mL of Exparel around the anal verge. I marked an elliptical incision and incised this around the lesion with a 10. Blade scalpel. The scalpel was used to carry the incision through the skin and the subcutaneous tissue especially near the anal sphincter. Electrocautery was then used for the purpose of hemostasis and to remove the middle portion of the specimen. A small amount of external anal sphincter was seen in the wound and preserved. A small flap of skin was raised laterally in order to assist with taking tension off of the wound at the time of closure. The subcutaneous tissues were closed with 3-0 Vicryl sutures and the skin was closed with interrupted 4-0 nylon sutures in a horizontal mattress pattern. The wound was dressed with a sponge and 4 x 4 gauze. The patient tolerated the procedure well and went in good condition to the postoperative care unit Complications: none Post-operative Condition: stable Disposition: PACU Plan for aftercare: Please see discharge instructions. Patient was instructed in wound care. And instructed to follow-up in the office in 7-10 days for suture removal.
== END 2023-01-08 10:37 | disposition home or self-care (01) ==
PROVIDERS: PCP Registered Nurse Diabetes Educator; Referring Provider Surgery; Visit Provider Surgery
PROC: (CPT 45990; principal; 2023-01-08 07:45)
PROC: (CPT 46922; 2023-01-08 07:45)
DX: A63.0 Anogenital (venereal) warts (principal); K62.82 Dysplasia of anus
CPT/HCPCS: 46922; C9290; J0330; J0690; J1100; J1885; J2250; J2405; J2704; J3010

== ENCOUNTER 2023-03-14 07:10 | Day surgery (SDC) | payer OTHER, SELFPAY ==
--- NOTE | 2023-03-14 | PATH_ITS ---
[facility] Accession Number: [id number] No. of containers..02 Tissue . 01 Material submitted: . PART A: colon - TRANSVERSE POLYP PART B: colon - DESCENDING POLYP . 01 Diagnosis: A. Transverse Colon, Polyp, Biopsy: Sessile serrated adenoma. . B. Descending Colon, Polyp, Biopsy: Tubular adenoma. MRV 03/20/2023 1534 Local . 01 Electronically signed: . Ирина Childs MD, Pathologist NPI- [id number] . 01 Gross description: . Part A: TRANSVERSE POLYP: Received in formalin is 1 fragment(s) of hylton, soft tissue measuring 0.6 x 0.4 x 0.2 cm submitted entirely in 1 cassette(s) Part B: DESCENDING POLYP: Received in formalin is 1 fragment(s) of hylton, soft tissue measuring 0.3 x 0.2 x 0.2 cm submitted entirely in 1 cassette(s) /JOSE L 03/19/2023 2034 Local . 01 Pathologist provided ICD-10: D12.3, D12.4 . 01 CPT . 613443, 676757 Specimen Comment: A courtesy copy of this report has been sent to [phone] Performed at: 01 [facility] [address] [place] [address], [place], [place] [id number] MD John Clark MD Phone: [phone]
[2023-03-14 07:27] VITALS: BMI 31.6
[2023-03-14 07:38] VITALS: BP 140/87; PULSE 77; RESP 17; TEMP 36.9; O2SAT 97
[2023-03-14] MEDS: LACTATED RINGERS 1,000 ML 120 ML IV (07:43)
--- NOTE | 2023-03-14 08:05 | PM.HP.1 ---
History of Present Illness History of Present Illness Date Patient Seen: 03/14/23 Time Patient Seen: 08:05 Chief complaint: Colonoscopy Narrative: Amairani is here for her colonoscopy. She had excision of condyloma by Dr. Mendez in January. See the prior office notes for details. [facility] Medical History Allergic rhinitis, seasonal Anal condyloma Asthma, moderate persistent, well-controlled Breast mass Chickenpox CKD (chronic kidney disease) Depression (02/19/11) Gastroesophageal reflux disease (12/26/05) Liver enzyme elevation Mixed hyperlipidemia Mumps Postmenopausal HRT (hormone replacement therapy) Sinus drainage Tubular adenoma of colon Surgical History History of surgery (09/09/19) Hx of cholecystectomy (05/2005) Hx of colonoscopy with polypectomy (04/2010) Family History Mother Cancer Father Cancer Social History household members: spouse Smoking Status: Former smoker Tobacco: How many years used: 20 second hand exposure: No alcohol intake: current substance use type: marijuana Meds Home Medications and Allergies Home Medications Medication Instructions Recorded Confirmed Type cholecalciferol (vitamin D3) 1,000 mcg PO DAILY 05/31/20 03/14/23 History epinephrine 0.3 mg/0.3 mL 0.3 mg (0.3 mL) IM ONCE PRN 09/26/21 02/26/23 Rx injection, auto-injector Allergic Reaction #1 ea pneumococcal 23-jessica ps vaccine 25 0.5 ml IM ONCE #0.5 mL 09/26/21 02/26/23 Rx mcg/0.5 mL injection syringe (Pneumovax-) varicella-zoster glycoE [id number] 0.5 ml IM ONCE #1 ea 09/26/21 02/26/23 Rx adj(PF) 50 mcg/0.5 mL IM susp, kit (Shingrix (PF)) bupropion HCl 450 mg 24 hr tablet, 450 mg PO QAM #90 tabs 10/10/22 03/14/23 Rx extended release estradiol 0.5 mg tablet 0.5 mg PO QDAY #90 tabs 10/10/22 03/14/23 Rx medroxyprogesterone 5 mg tablet 5 mg PO DAILY #90 tabs 10/10/22 03/14/23 Rx pantoprazole 40 mg tablet,delayed 40 mg PO DAILY #90 tabs 10/10/22 03/14/23 Rx release albuterol sulfate 90 mcg/actuation 2 puff inhalation BID 01/08/23 03/14/23 History aerosol inhaler (Proventil HFA) ibuprofen 600 mg tablet 600 mg PO Q6H #30 tabs 01/08/23 03/14/23 Rx fluticasone 100 mcg-salmeterol 50 1 inh inhalation DAILY #90 ea 01/16/23 03/14/23 Rx mcg/dose blistr powdr for inhalation (Wixela Inhub) fluticasone propionate 45 1 puff inhalation DAILY 03/14/23 03/14/23 History mcg-salmeterol 21 mcg/actuation HFA inhaler (Advair HFA) Allergies Allergy/AdvReac Type Severity Reaction Status Date / Time diphenhydramine Allergy Severe (BENADRYL) Verified 03/14/23 07:19 PUTS HER TO SLEEP IMMEDIATELY venom-honey bee Allergy Intermediate SWELLING Verified 03/14/23 07:19 [bee venom (honey bee)] pseudoephedrine AdvReac Drowsy Verified 03/14/23 07:19 [From Sudafed] Exam Vital Signs (past 8 hours): - 03/14/23 07:38 Temperature 98.4 F Pulse Rate 77 Respiratory Rate 17 Blood Pressure 140/87 Pulse Oximetry 97 Oxygen Delivery Method Room Air Oxygen Delivery Method Room Air Const General: No acute distress Assessment & Plan Assessment and plan (1) History of adenomatous polyp of colon: Status: Chronic Plan We will proceed with colonoscopy today. If she needs more excision of anal condylomata we will schedule that for the future
--- NOTE | 2023-03-14 08:39 | P.OP.COLON_ITS ---
Operative Date/Time/Diagnoses Date of procedure: 03/14/23 Time of procedure: 08:39 Pre-op diagnosis: History of polyps Post-op diagnosis: same Procedure & Clinicians Study performed: Colonoscopy Same procedure as scheduled: Yes Surgeon: Eric Osullivan Procedure Notes Procedure in detail: Surgeon: Eric Osullivan MD Anesthesia: Key Egan INFORMATION SECURITY ANALYST Procedure: The patient was brought to the endoscopy suite, placed in left lateral decubitus position. The patient was connected to monitoring devices. A time-out was performed. Sedation was administered. Once the patient was adequately sedated, a digital rectal exam was performed and was normal. The surgical scar was well healed except for a very small area of dehiscence in the midportion of the scar which appeared to be healing slowly. The scope was then inserted and advanced to the cecum where the appendiceal orifice was identified and photographed. The scope was then slowly withdrawn over greater than 6 minutes. The mucosa was thoroughly inspected. There was a 8 mm polyp in the distal transverse colon removed with a cold snare. There was a 5 mm polyp in the descending colon removed with a cold snare. The scope was retroflexed in the rectum. No other abnormalities were seen. The scope was straightened and removed. The patient was awakened and brought to recovery. Scope withdrawal time: 12 minutes Sedation time: 17 minutes EBL: 2 mL Findings: 8 mm polyp in the transverse colon and 5 mm polyp in the descending colon Post-procedure Disposition: PACU
[2023-03-14 08:40] VITALS: BP 104/67; PULSE 71; RESP 16; TEMP 36.2; O2SAT 96
[2023-03-14 08:45] VITALS: BP 104/67; PULSE 70; RESP 16; O2SAT 98
[2023-03-14 08:50] VITALS: BP 104/75; PULSE 74; RESP 16; TEMP 36.8; O2SAT 98
[2023-03-14 08:55] VITALS: BP 123/79; PULSE 67; RESP 17; O2SAT 94
== END 2023-03-14 09:03 | disposition home or self-care (01) ==
PROVIDERS: PCP Registered Nurse Diabetes Educator; Referring Provider Surgery; Visit Provider Surgery
PROC: 0DJD8ZZ Inspection of Lower Intestinal Tract, Via Natural or Artificial Opening Endoscopic (ICD-10-PCS; CPT 45378; principal; 2023-03-14 08:15)
DX: Z12.11 Encounter for screening for malignant neoplasm of colon (principal); Z86.010 Personal history of colon polyps; D12.3 Benign neoplasm of transverse colon; D12.4 Benign neoplasm of descending colon
CPT/HCPCS: 45385; J2704

== ENCOUNTER → 2024-01-15 08:23 | Outpatient (CLI) | payer OTHER, SELFPAY ==
[2024-01-15 09:57] LABS: Hematocrit 43.3 % (36-46); Hemoglobin 14.9 g/dL (12.0-16.0); Mean Corpuscular HGB Conc 34.4 % (30-36); Mean Corpuscular Hemoglobin 30.5 PG (26-34); Mean Corpuscular Volume 88.8 fL (80-100); Platelet Count 231 X10^3/uL (150-400); Red Blood Cell Count 4.88 X10^6/uL (4.0-5.2); Red Cell Distribution Width 13.2 % (11.6-14.8)
[2024-01-15 10:16] LABS: Alanine Aminotransferase 24 IU/L (<35); Albumin 3.9 g/dL (3.5-5.0); Albumin Globulin Ratio 1.3 (1.0-2.8); Alkaline Phosphatase 74 U/L (38-126); Aspartate Aminotransferase 24 IU/L (14-36); BUN Creatinine Ratio 10.8 (6-22); Bilirubin Total 0.7 mg/dL (0.2-1.3); Blood Urea Nitrogen 12 mg/dL (7-17); Calcium 9.5 mg/dL (8.4-10.2); Carbon Dioxide 26 mmol/L (22-32); Chloride 106 mmol/L (98-107); Cholesterol 199 mg/dL (140-199); Estimated Glomerular Filt Rate 56 mL/min (>60); Globulin 3.1 g/dL (1.7-4.1); Glucose 80 mg/dL (80-110); HDL Cholesterol 45 mg/dL (40-60); HEMOLYSIS < 15 (0-50); LDL Cholesterol Calculated 126 mg/dL (<100); Sodium 140 mmol/L (137-145); Triglycerides 138 mg/dL (35-150)
== END ==
LOC: LAB 08:23
PROVIDERS: PCP Registered Nurse Diabetes Educator; Referring Provider Registered Nurse Diabetes Educator; Visit Provider Registered Nurse Diabetes Educator
DX: E78.2 Mixed hyperlipidemia (principal); N18.9 Chronic kidney disease, unspecified; R74.8 Abnormal levels of other serum enzymes
CPT/HCPCS: 36415; 80053; 80061; 85027

== ENCOUNTER → 2025-01-18 07:12 | Outpatient (CLI) | payer MEDICARE, OTHER, SELFPAY ==
[2025-01-18 07:38] LABS: Hematocrit 44.4 % (36-46); Hemoglobin 15.3 g/dL (12.0-16.0); Mean Corpuscular HGB Conc 34.4 % (30-36); Mean Corpuscular Hemoglobin 30.9 PG (26-34); Mean Corpuscular Volume 89.8 fL (80-100); Platelet Count 242 X10^3/uL (150-400); Red Blood Cell Count 4.94 X10^6/uL (4.0-5.2); Red Cell Distribution Width 13.2 % (11.6-14.8); White Blood Cell Count 7.7 X10^3/uL (4.5-11.0)
[2025-01-18 07:57] LABS: Alanine Aminotransferase 26 IU/L (<35); Albumin Globulin Ratio 1.6 (1.0-2.8); Alkaline Phosphatase 74 U/L (38-126); Aspartate Aminotransferase 25 IU/L (14-36); BUN Creatinine Ratio 13.9 (6-22); Bilirubin Total 0.7 mg/dL (0.2-1.3); Blood Urea Nitrogen 15 mg/dL (7-17); Calcium 9.6 mg/dL (8.4-10.2); Carbon Dioxide 23 mmol/L (22-32); Chloride 106 mmol/L (98-107); Cholesterol 204 mg/dL (140-199); Estimated Glomerular Filt Rate 57 mL/min (>60); Globulin 2.5 g/dL (1.7-4.1); Glucose 93 mg/dL (80-110); HDL Cholesterol 48 mg/dL (40-60); HEMOLYSIS < 15 (0-50); LDL Cholesterol Calculated 119 mg/dL (<100); Potassium 3.8 mmol/L (3.4-5.1); Sodium 138 mmol/L (137-145); Total Protein 6.5 g/dL (6.3-8.2); Triglycerides 186 mg/dL (35-150)
[2025-01-18 19:39] LABS: Creatinine Urine Random 138.55 mg/dL
[2025-01-18 19:43] LABS: Microalbumin Urine Random 0.7 mg/dL (0-1.6)
== END ==
LOC: LAB 07:14
PROVIDERS: PCP Registered Nurse Diabetes Educator; Referring Provider Registered Nurse Diabetes Educator; Visit Provider Registered Nurse Diabetes Educator
DX: R74.8 Abnormal levels of other serum enzymes (principal); N18.9 Chronic kidney disease, unspecified; E78.2 Mixed hyperlipidemia
CPT/HCPCS: 36415; 80053; 80061; 82043; 82570; 85027

== ENCOUNTER → 2025-02-01 11:43 | Outpatient (CLI) | payer MEDICARE, OTHER, SELFPAY ==
--- NOTE | 2025-02-01 11:44 | DI.RAD.S_ITS ---
PROCEDURE: XR DEXA AXIAL SKELETON INDICATIONS: eval, increased risk for osteoporosis COMPARISON: None. FINDINGS: Lumbar Spine: Bone mineral density 0.928 g/cm2, T score -1.1, osteopenia. Left Femoral Neck: Bone mineral density 0.541 g/cm2, T score -2.8. Left Hip: Bone mineral density 0.807 g/cm2, T score -1.7, osteopenia. Fracture Risk Calculation (when applicable): Not reported due to osteoporosis diagnosis. (T score greater or equal to -1.0 to: NORMAL) (T score from -1.1 to -2.4: OSTEOPENIA) (T score less than or equal to -2.5: OSTEOPOROSIS) IMPRESSION: Osteoporosis Follow-up guidelines as follows: Osteoporosis: Consider a repeat DEXA and Vertebral Fracture Assessment (VFA) exam in 2 years or sooner if medically necessary, to reassess this patient's status. Osteopenia: Consider a repeat DEXA in 2-3 years to reassess this patient's status, or if there is a new clinical indication. Normal: Consider a repeat DEXA in 5 years or sooner, or if there is a new clinical indication. All treatment decisions require clinical judgment and consideration of individual patient factors, including patient preferences, comorbidities, previous drug use, risk factors not captured in the FRAX model (e.g., frailty, falls, vitamin D deficiency, increased bone turnover, interval significant decline in bone density ) and possible under- or over-estimation of fracture risk by FRAX. In addition, the NOF Guide recommends that FDA-approved medical therapies be considered in postmenopausal women and men age >= 50 years with a: * Hip or vertebral (clinical or morphometric) fracture * T-score of <=-2.5 at the spine or hip * Ten-year fracture probability by FRAX of >= 3% for hip fracture or >=20% for major osteoporotic fracture. Dictated by: Mervin Juares M.D. on 02/01/2025 at 15:11 Approved by: Mervin Juares M.D. on 02/01/2025 at 15:12
== END ==
PROVIDERS: PCP Registered Nurse Diabetes Educator; Referring Provider Registered Nurse Diabetes Educator; Visit Provider Registered Nurse Diabetes Educator
DX: M81.0 Age-related osteoporosis without current pathological fracture (principal); Z78.0 Asymptomatic menopausal state
CPT/HCPCS: 77080